=== PATIENT | female | born 1950 | race Caucasian/White ===

== ENCOUNTER 2017-12-25 19:08 | Inpatient (IN) | payer MEDICARE, MEDICAID ==
[~2017-12-25] VITALS: Ht 157.5 cm; Wt 74.8 kg
[~2017-12-25 19:08] MED LIST: AMLO5TAB4 PO; OMEP20CA10 PO; TRAM50TA3 PO; sulfasalazine PO
[2017-12-25] MEDS ORDERED: ONDANSETRON HCL 4MG/2ML VIAL IV STA (23:26)
[2017-12-25] MEDS ORDERED: MORPHINE SULFATE 4 MG/ML CPJ (NOT FOR IM USE) IV STA (23:26)
[2017-12-25] MEDS ORDERED: VANCOMYCIN 1 G PREMIX 200 ML IV ONE (23:30)
[2017-12-25] MEDS ORDERED: PIPERACILLIN/TAZ 3.375G PREMIX 50 ML IV ONE (23:30)
[2017-12-26] MEDS ORDERED: HYDROCODONE/ACETAMINOPHEN 10/325MG TABLET PO ONE
[2017-12-26 00:15] LABS: BASOPHILS % 0.2 % (0.0-2.0); EOSINOPHILS % 0.1 % (0.0-5.0); HEMATOCRIT. 29.1 % (36.0-48.0); HEMOGLOBIN. 9.3 g/dL (12.0-16.0); LYMPHOCYTES % 17.5 % (20.0-50.0); MEAN CORPUSCULAR HEMOGLOBIN 26.4 pg (28.0-32.0); MEAN CORPUSCULAR VOLUME 82.5 fL (81.0-99.0); MEAN PLATELET VOLUME 8.8 fl (7.4-10.4); MONOCYTES % 3.9 % (2.0-8.0); NEUTROPHILS % 78.3 % (40.0-76.0); RED BLOOD CELL COUNT 3.53 mill/uL (4.2-5.4); RED CELL DISTRIBUTION WIDTH 20.6 % (11.6-14.6)
[2017-12-26 00:19] LABS: INR 1.1; PROTHROMBIN TIME 11.4 sec (9.4-11.6)
[2017-12-26 00:23] LABS: CHLORIDE 83 mEq/L (98-107)
[2017-12-26 00:28] LABS: TROPONIN I < 0.02 ng/mL (0.00-0.04)
[2017-12-26] MEDS ORDERED: SODIUM CHLORIDE 0.9% 1000ML BAG (SEPSIS BOLUS) IV ONE (01:00)
[2017-12-26 04:32] LABS: PLATELET 549 x1000/uL (130-400)
[2017-12-26] MEDS ORDERED: DOCUSATE SODIUM 100MG CAPSULE PO PRN (06:30)
[2017-12-26] MEDS ORDERED: NA PHOS,M-B/NA PHOS,DI-BA ENEMA 118ML PR PRN (06:30)
[2017-12-26] MEDS ORDERED: LORAZEPAM 0.5MG TABLET PO PRN (06:30)
[2017-12-26] MEDS ORDERED: CLONIDINE 0.1MG TABLET PO PRN (06:30)
[2017-12-26] MEDS ORDERED: ACETAMINOPHEN 325MG TABLET PO PRN (06:30)
[2017-12-26] MEDS ORDERED: MORPHINE SULFATE 4 MG/ML CPJ (NOT FOR IM USE) IV PRN (06:30)
[2017-12-26] MEDS ORDERED: MAGNESIUM/ALUMINUM HYDROXIDE/SIMETHICONE 30ML UDC PO PRN (06:30)
[2017-12-26] MEDS ORDERED: DIPHENHYDRAMINE 50MG/ML VIAL IV PRN (06:30)
[2017-12-26] MEDS ORDERED: IPRATROPIUM/ALBUTEROL 0.5-3(2.5)MG/3ML NEB INH PRN (06:30)
[2017-12-26] MEDS ORDERED: GUAIFENESIN 200MG/10ML SUGAR FREE UDC PO PRN (06:30)
[2017-12-26] MEDS ORDERED: ONDANSETRON HCL 4MG/2ML VIAL IV PRN (06:30)
[2017-12-26] MEDS ORDERED: PIPERACILLIN/TAZ 3.375G PREMIX 50 ML IV SCH (08:50)
[2017-12-26 09:10] LABS: KETONES URINE NEGATIVE (NEGATIVE); LEUKOCYTE ESTERASE URINE 1+ (NEGATIVE); NITRITE URINE NEGATIVE (NEGATIVE); OCCULT BLOOD URINE TRACE (NEGATIVE); PROTEIN URINE 1+ (NEGATIVE); SPECIFIC GRAVITY URINE 1.018 (1.005-1.030); UROBILINOGEN URINE 0.2 E.U./dL (0.2-1.0)
[2017-12-26 09:15] LABS: CLARITY URINE TURBID (CLEAR); COLOR URINE YELLOW (YELLOW)
[2017-12-26 09:37] LABS: CHLORIDE 86 mEq/L (98-107)
[2017-12-26] MEDS: ENOXAPARIN 40MG/0.4ML SYR SUBCUT SCH (11:01)
[2017-12-26] MEDS: HYDROCODONE/ACETAMINOPHEN 10/325MG TABLET PO PRN ×3 (11:02→18:58)
[2017-12-26] MEDS ORDERED: LORAZEPAM 2MG/ML CPJ IV SCH (15:00)
[2017-12-26 15:19] LABS: CREATINE KINASE 63 IU/L (26-192); TROPONIN I < 0.02 ng/mL (0.00-0.04)
[2017-12-26 16:30] VITALS: BP 106/60
[2017-12-26 17:40] VITALS: BP 106/60
[2017-12-26] MEDS: PIPERACILLIN/TAZ 3.375G PREMIX 50 ML IV SCH ×2 (18:57→23:35)
[2017-12-26 20:00] VITALS: BP 94/64
[2017-12-27] VITALS: BP 97/59
[2017-12-27 01:24] LABS: CREATINE KINASE MB FRACTION 1.1 ng/mL (0.5-3.6)
[2017-12-27 04:00] VITALS: BP 103/72
[2017-12-27] MEDS: PIPERACILLIN/TAZ 3.375G PREMIX 50 ML IV SCH ×3 (06:02→23:58)
[2017-12-27 07:02] LABS: HEMATOCRIT. 24.9 % (36.0-48.0); HEMOGLOBIN. 8.2 g/dL (12.0-16.0); MEAN CORPUSCULAR HEMOGLOBIN 27.3 pg (28.0-32.0); MEAN CORPUSCULAR VOLUME 83.1 fL (81.0-99.0); MEAN PLATELET VOLUME 8.3 fl (7.4-10.4); PLATELET 400 x1000/uL (130-400); RED CELL DISTRIBUTION WIDTH 21.2 % (11.6-14.6)
[2017-12-27 08:00] VITALS: BP 118/76
[2017-12-27 08:38] LABS: CHLORIDE 90 mEq/L (98-107)
[2017-12-27] MEDS: HYDROCODONE/ACETAMINOPHEN 10/325MG TABLET PO PRN ×2 (08:39→20:44)
[2017-12-27 08:51] LABS: CREATINE KINASE 43 IU/L (26-192); CREATINE KINASE MB FRACTION 0.6 ng/mL (0.5-3.6); HDL CHOLESTEROL 15 mg/dL (40-59); LDL CHOLESTEROL 73 mg/dL (5-100); T4 FREE 0.97 ng/dL (0.76-1.46)
[2017-12-27] MEDS: ENOXAPARIN 40MG/0.4ML SYR SUBCUT SCH (09:22)
[2017-12-27 10:24] LABS: PLATELET ESTIMATE NORMAL
[2017-12-27 12:00] VITALS: BP 95/62
[2017-12-27] MEDS: CEFTRIAXONE 1 G PREMIX 50 ML IV SCH (15:47)
[2017-12-27 16:00] VITALS: BP 100/69
[2017-12-27 20:00] VITALS: BP 115/75
[2017-12-28] VITALS (7 sets, daily range): BP systolic 102–134; BP diastolic 66–86
[2017-12-28] MEDS: PIPERACILLIN/TAZ 3.375G PREMIX 50 ML IV SCH ×2 (06:01→13:09)
[2017-12-28 06:49] LABS: HEMATOCRIT. 24.5 % (36.0-48.0); MEAN CORPUSCULAR HEMOGLOBIN 26.9 pg (28.0-32.0); MEAN CORPUSCULAR VOLUME 82.5 fL (81.0-99.0); MEAN PLATELET VOLUME 8.2 fl (7.4-10.4); PLATELET 396 x1000/uL (130-400); RED BLOOD CELL COUNT 2.97 mill/uL (4.2-5.4); RED CELL DISTRIBUTION WIDTH 21.4 % (11.6-14.6)
[2017-12-28 07:09] LABS: CHLORIDE 87 mEq/L (98-107)
[2017-12-28] MEDS: ENOXAPARIN 40MG/0.4ML SYR SUBCUT SCH (09:00)
[2017-12-28 10:21] LABS: PLATELET ESTIMATE NORMAL
[2017-12-28] MEDS: HYDROCODONE/ACETAMINOPHEN 10/325MG TABLET PO PRN ×2 (10:53→16:42)
[2017-12-28] MEDS ORDERED: FUROSEMIDE 40MG/4ML VIAL IVP NR (12:00)
[2017-12-28] MEDS: CEFTRIAXONE 1 G PREMIX 50 ML IV SCH (14:30)
== END 2017-12-28 18:25 | disposition home or self-care (01) | DRG 871 ==
LOC: ER 20:42 → 7WST 12-26 01:05 → EDBEDREQ 12-26 01:07 → ENRESERV 12-26 12:42 → CANRESERV 12-26 12:42 → EDBEDREQSVC 12-26 13:06 → ENRESERV 12-26 14:41
PROVIDERS: ADMIT Internal Medicine; ATTEND Internal Medicine
DX: A41.50 Gram-negative sepsis, unspecified (principal); J69.0 Pneumonitis due to inhalation of food and vomit; J96.00 Acute respiratory failure, unspecified whether with hypoxia or hypercapnia; E43 Unspecified severe protein-calorie malnutrition; J90 Pleural effusion, not elsewhere classified; Z93.0 Tracheostomy status; C78.00 Secondary malignant neoplasm of unspecified lung; C78.7 Secondary malignant neoplasm of liver and intrahepatic bile duct; N39.0 Urinary tract infection, site not specified; E87.1 Hypo-osmolality and hyponatremia; C50.919 Malignant neoplasm of unspecified site of unspecified female breast; D64.9 Anemia, unspecified; I11.9 Hypertensive heart disease without heart failure; E86.0 Dehydration; K21.9 Gastro-esophageal reflux disease without esophagitis; M19.90 Unspecified osteoarthritis, unspecified site; Z79.899 Other long term (current) drug therapy; Z85.3 Personal history of malignant neoplasm of breast; Z90.81 Acquired absence of spleen; Z68.30 Body mass index [BMI] 30.0-30.9, adult
CPT/HCPCS: 36415; 71045; 80048; 80053; 80061; 81003; 82550; 82553; 83036; 83605; 83880; 84439; 84443; 84484; 85025; 85379; 85610; 87040; 87077; 87086; 87186; 87804; 93005; 93306; 93970; 96365; 96366; 96368; 96375; 96376; 97162; 99285; J0696; J1650; J1940; J2270; J2405; J2543; J3370; J7030; J7050